=== PATIENT | male | born 1955 | race Caucasian/White ===

== ENCOUNTER 2019-07-19 20:11 | Inpatient (IN) | payer OTHER ==
[~2019-07-19] VITALS: Ht 180.3 cm; Wt 117.9 kg
[~2019-07-19 20:11] MED LIST: ANDROGEL1.25 GM TD; ASPIR 8181 MG PO; HYDROCODON-ACE1 EAC7 PO; HYDROCODONE-AP1 EAC6 PO; KEFLEX500 MG PO; OSELB75 PO; SIMVASTATIN40 MG PO
[2019-07-19 20:15] VITALS: BP 155/82
[2019-07-19] MEDS ORDERED: FISH OIL 1,001000 M2 PO (20:21)
[2019-07-19] MEDS ORDERED: FENOFIBRATE160 MG PO (20:21)
[2019-07-19 20:53] LABS: ABSOLUTE BASOPHILS 0.1 thou/uL (0.0-0.2); ABSOLUTE EOSINOPHILS 0.1 thou/uL (0.0-0.7); ABSOLUTE LYMPHOCYTES 1.7 thou/uL (0.8-5.3); ABSOLUTE MONOCYTES 0.8 thou/uL (0.0-1.2); ABSOLUTE NEUTROPHILS 8.9 thou/uL (1.6-8.1); BASOPHILS 0.5 %; EOSINOPHILS 1.1 %; HEMATOCRIT 43.6 % (42.0-52.0); HEMOGLOBIN 14.6 gm/dL (14.0-18.0); LYMPHOCYTES 14.8 %; MCH 29.9 pg (26.0-34.0); MCHC 33.5 g/dL (28.0-37.0); MCV 89.1 fL (80.0-100.0); MONOCYTES 7.1 %; MPV 7.5 fl. (7.2-11.1); NUCLEATED RBCS 0 /100WBC; PLATELET COUNT* 279 thou/uL (150-400); POLYS 76.5 %; RBC 4.89 mil/uL (4.50-6.00); RDW-CV 14.4 % (10.5-14.5); WBC 11.7 thou/uL (4.0-11.0)
[2019-07-19 20:57] LABS: ANION GAP 7 mmol/L (7-16); BUN 26 mg/dL (7-18); CALCIUM 8.9 mg/dL (8.5-10.1); CHLORIDE 105 mmol/L (98-107); CO2 29 mmol/L (21-32); CREATININE 1.5 mg/dL (0.6-1.3); GLUCOSE 158 mg/dL (70-99); POTASSIUM 3.7 mmol/L (3.5-5.1); SODIUM 141 mmol/L (136-145)
[2019-07-19 21:06] LABS: ALKALINE PHOSPHATASE 66 U/L (46-116); SGOT 26 U/L (15-37); SGPT 50 U/L (30-65); TOTAL BILIRUBIN 0.3 mg/dL (<0.1-1.0); TOTAL PROTEIN 7.3 g/dL (6.4-8.2); TROPONIN-I LEVEL <0.06 ng/mL (<0.06)
[2019-07-19 21:32] LABS: LIPASE 12433 U/L (73-393)
--- NOTE | 2019-07-19 22:02 | NUR ---
PT RETURNED FROM CT.
--- NOTE | 2019-07-19 22:05 | NUR ---
REPORT GIVEN TO DONNY ZEPEDA IN [facility].
[2019-07-19 22:07] VITALS: BP 137/70
--- NOTE | 2019-07-19 22:10 | NUR ---
PT ADMITTED TO FLOOR PER CART ACCOMPANIED BY ER STAFF AND WITH BELONGINGS. ORIENTED TO ROOM AND CALL LITE. HISTORY OBTAINED AND ASSESSMENT PERFORMED, SEE ADMIT NOTES. PT CO GENERALIZED ABD PAIN 2/10- DENIES NEED FOR PAIN MEDS, DENIES NAUSEA. INSTRUCTED ON NPO STATUS AND VERBALIZES UNDERSTANDING. UP AD ZACKARY WITH STEADY GAIT. LFA IVF PLACED ON PUMP FOR INFUSION. AOX4, CALL LITE IN EASY REACH. WILL CONTINUE TO MONITOR AND PROVIDE CARES NEEDED.
[2019-07-19 22:20] VITALS: BP 152/94
[2019-07-20] VITALS: BP 142/85
[2019-07-20 00:38] LABS: URINE BILIRUBIN NEGATIVE (Negative); URINE BLOOD NEGATIVE (Negative); URINE CLARITY CLEAR; URINE COLOR YELLOW; URINE GLUCOSE-RANDOM NEGATIVE (Negative); URINE KETONES NEGATIVE (Negative); URINE LEUKOCYTES-REFLEX NEGATIVE (Negative); URINE NITRITE-REFLEX NEGATIVE (Negative); URINE PROTEIN NEGATIVE (Negative); URINE UROBILINOGEN 0.2 E.U./dl (0.2-1.0)
--- NOTE | 2019-07-20 05:16 | NUR ---
PT SLEPT FAIRLY WELL AFTER ADMIT LAST NIGHT. RECEIVED IV PAIN AND NAUSEA MED X1 OVERNIGHT WITH GOOD RESULT. NPO. UP AD ZACKARY TO BR TO VOID. LFA IVF INFUSING PER PUMP. TROP LABS DRAWN OVERNIGHT NORMAL. UA SENT TO LAB. ABLE TO USE CALL LITE AND MAKE NEEDS KNOWN.
[2019-07-20 08:30] VITALS: BP 138/77
[2019-07-20 09:46] LABS: CHOLESTEROL 186 mg/dL (<200); HDL CHOLESTEROL 41 mg/dL (>40); LDL CHOLESTEROL 119 mg/dL (<100); SERUM ASSESSMENT Clear; TC:HDL 4.5 Ratio (Not establshd); TRIGLYCERIDE 132 mg/dL (<150); VLDL 26 mg/dL (<40)
[2019-07-20 16:00] VITALS: BP 134/66
--- NOTE | 2019-07-20 17:10 | EKG ---
[place] [address] ELECTROCARDIOGRAM REPORT Name: JESSICA TIMMONS Room: [address] ADM IN .R.#: [id number] Admission: 07/19/19 Attend Phys: Flaco Sood MD Discharge: Date of : 57 Report #: [id number] THIS REPORT FOR: //name// [facility] ED Test Date: 2019-07-19 Test Time: 20:19:13 Pat Name: JESSICA TIMMONS Department: Room: [facility] Gender: M Fisher Gill Net: [place] : 1955 Requested By: Elliott Dias Order Number: [id number] MD: Adolfo Rosario Measurements Intervals [place] Rate: 73 P: 55 [place]: 162 QRS: 54 QRSD: 104 T: 9 QT: 386 QTc: 426 Interpretive Statements Sinus rhythm No previous ECG available for comparison Electronically Signed On 07-20-2019 17:10:42 CDT by Adolfo Rosario [email or web address] <ELECTRONICALLY SIGNED> By: Adolfo Rosario MD, [facility] 07/20/19 1710 18 18 Adolfo Rosario MD, FACC /EPI
--- NOTE | 2019-07-20 18:14 | NUR ---
PATIENT ALERT AND ORIENTED X 4. VITAL SIGNS STABLE ON ROOM AIR. UP INDEPENDENTLY IN ROOM. IV PATENT WITH FLUIDS INFUSING. PAIN BEING MANAGED WITH IV MEDICATION. DENIES NAUSEA. HOURLY ROUNDS MAINTAINED THROUGHOUT THE SHIFT. CALL LIGHT WITHIN REACH. NURSING WILL CONTINUE TO MONITOR.
[2019-07-20 22:00] VITALS: BP 116/57
[2019-07-21 04:25] LABS: ABSOLUTE EOSINOPHILS 0.1 thou/uL (0.0-0.7); ABSOLUTE LYMPHOCYTES 2.1 thou/uL (0.8-5.3); ABSOLUTE MONOCYTES 0.6 thou/uL (0.0-1.2); ABSOLUTE NEUTROPHILS 6.9 thou/uL (1.6-8.1); BASOPHILS 0.5 %; EOSINOPHILS 0.8 %; HEMOGLOBIN 13.9 gm/dL (14.0-18.0); LYMPHOCYTES 21.4 %; MCH 29.5 pg (26.0-34.0); MCHC 33.1 g/dL (28.0-37.0); MCV 89.1 fL (80.0-100.0); MONOCYTES 6.6 %; MPV 7.3 fl. (7.2-11.1); NUCLEATED RBCS 0 /100WBC; PLATELET COUNT* 254 thou/uL (150-400); POLYS 70.7 %; RBC 4.71 mil/uL (4.50-6.00); RDW-CV 14.3 % (10.5-14.5); WBC 9.8 thou/uL (4.0-11.0)
[2019-07-21 04:32] LABS: CALCIUM 9.3 mg/dL (8.5-10.1); CREATININE 1.3 mg/dL (0.6-1.3); POTASSIUM 4.1 mmol/L (3.5-5.1)
--- NOTE | 2019-07-21 05:39 | NUR ---
PT SLEPT WELL OVERNIGHT WITHOUT COMPLAINTS. HAS DENIED NEED FOR PAIN OR NAUSEA MEDICINE. LFA IVF INFUSING PER PUMP. UP AD ZACKARY IN ROOM TO BR TO VOID WITHOUT DIFFICULTY. AM LABS DRAWN. ABLE TO USE CALL LITE AND MAKE NEEDS KNOWN.
[2019-07-21 07:51] VITALS: BP 133/75
[2019-07-21 16:00] VITALS: BP 142/83
--- NOTE | 2019-07-21 16:10 | CON ---
[address] [address] CONSULTATION Name: JESSICA TIMMONS GRACE Room: [address] IN M.R.#: [id number] Admission: 07/19/19 Attend Phys: Flaco Sood MD Discharge: Date of : 57 Report #: [id number] THIS REPORT FOR: //name// CC: Flaco Perez MD DICTATED BY: Aminata Reid [facility] DATE OF SERVICE: 07/21/2019 PRIMARY CARE PHYSICIAN: Kristina Perez MD Please note at the time of this dictation, the patient was seen and physically examined by myself. REASON FOR CONSULTATION: Pancreatitis. HISTORY OF PRESENT ILLNESS: This is a 64-year-old male who presented to the Emergency Room with generalized abdominal pain that precedingly continued to get worse. He states that it started on Saturday after eating Burmese food and progressively got worse to the point when he was having some nausea and vomiting at that time, prompting him to come in to be seen. The patient has never experienced any of this type of discomfort before and it is the first time that he has been told that he has ever had pancreatitis. The patient was last seen by us in 2014, he underwent a colonoscopy that showed nonthrombosed internal hemorrhoids and some diverticulosis in the sigmoid colon with a repeat in 5 years. The patient is denying any issues with any acid reflux. He states his bowels typically move on a daily basis, soft and formed with no evidence of any bright red blood or any melena noted. ALLERGIES: No known drug allergies. MEDICATIONS FROM HOME: Include simvastatin, aspirin, fenofibrate, and fish oil. PAST MEDICAL HISTORY: Low testosterone. He has sleep apnea, uses CPAP and high cholesterol. PAST SURGICAL HISTORY: Negative. FAMILY HISTORY: Mother had uterine cancer. SOCIAL HISTORY: . Alcohol is only socially once in a while. No tobacco or illegal drug use. REVIEW OF SYSTEMS: Twelve-point review [place] [address] CONSULTATION Name: JESSICA TIMMONS Room: [address] IN ..#: [id number] Admission: 07/19/19 Attend Phys: Flaco Sood MD Discharge: Date of : 57 Report #: [id number] except what is mentioned in the HPI. PHYSICAL EXAMINATION: VITAL SIGNS: Temperature 37.1, pulse 77, respirations 16, blood pressure 135/75. HEART: Regular rate and rhythm. LUNGS: Clear. ABDOMEN: Soft, positive bowel sounds in all 4 quadrants with no masses or tenderness noted. LABORATORY DATA: Hemoglobin 13.4, white count 9.8, platelets 254. GFR is 56. Lipase on admission was 12,433, currently is down to 673 and LFTs are completely normal. CT showed mild peripancreatic fat stranding and fluid consistent with acute pancreatitis. No discrete pancreatic masses identified. Gallbladder normal. Liver shows hepatic steatosis and colonic diverticulosis noted on the CT. Ultrasound of the abdomen consistent with CT findings of hepatomegaly and hepatic steatosis. No ductal dilatation or gallstones are noted. IMPRESSION: 1. Abdominal pain, resolved. 2. Nausea and vomiting, resolved. 3. Pancreatitis. 4. Fatty liver. 5. Family history, mother, uterine cancer. PLAN: 1. Advance diet as tolerated. 2. We will consider an EUS as an outpatient for cause. 3. Further recommendations to be made after Dr. East sees the patient later today. Thank you for allowing us to participate in this patient's care. Please do not hesitate to call with any questions in regard to this consult. <ELECTRONICALLY SIGNED> By: Ariel East MD 07/21/19 1610 1115 1204Ariel East MD /nt
--- NOTE | 2019-07-21 17:59 | NUR ---
PT A&Ox4. VITALS STABLE. IV PATENT, INFUSING. DENIED PAIN. DENIED N/V. TOLERATING FULL LIQUID DIET. UP AD ZACKARY. CALL LIGHT WITHIN REACH. WILL CONTINUE TO MONITOR.
[2019-07-21 20:15] VITALS: BP 125/64
--- NOTE | 2019-07-22 05:20 | NUR ---
PT SLEPT WELL OVERNIGHT. SNACK AT HS WITHOUT N/V OR INCREASED PAIN. H LFA IVF INFUSING PER PUMP. UP AD ZACKARY IN ROOM TO BR TO VOID WITHOUT DIFFICULTY. NO LABS THIS MORNING. HAS DENIED NEED FOR PAIN OR NAUSEA MED THIS SHIFT. ANTICIPATING ADVANCED DIET AND DISCHARGE HOME LATER TODAY. CALL LITE IN EASY REACH.
[2019-07-22 07:44] VITALS: BP 134/76
[2019-07-22 11:13] VITALS: BP 134/76
--- NOTE | 2019-07-22 12:51 | NUR ---
PT DISCHARGED AND LEFT UNIT AT 1250 WITH AND NURSING STAFF TO HOME. IV OUT. PT STABLE UPON DISCHARGE. TOLERATED REGULAR DIET. PERSONAL BELONGINGS SENT WITH PT. NO PAPER SCRIPTS.
== END 2019-07-22 12:50 | disposition home or self-care (01) | DRG 438 ==
LOC: M.ERS 20:11 → M.ORTHSURG 21:39 → M.TBA-ER 21:39 → M.ORTHSURG 22:15
PROVIDERS: Family Medicine; Internal Medicine; ADMIT Internal Medicine
DX: K85.90 Acute pancreatitis without necrosis or infection, unspecified (principal); N17.0 Acute kidney failure with tubular necrosis; R65.11 Systemic inflammatory response syndrome (SIRS) of non-infectious origin with acute organ dysfunction; E66.9 Obesity, unspecified; E78.5 Hyperlipidemia, unspecified; K42.9 Umbilical hernia without obstruction or gangrene; K76.0 Fatty (change of) liver, not elsewhere classified; E78.00 Pure hypercholesterolemia, unspecified; Z90.49 Acquired absence of other specified parts of digestive tract; Z79.82 Long term (current) use of aspirin; Z88.8 Allergy status to other drugs, medicaments and biological substances; Z80.59 Family history of malignant neoplasm of other urinary tract organ; Z68.36 Body mass index [BMI] 36.0-36.9, adult

== ENCOUNTER 2021-07-27 00:16 | Emergency (ER) | payer MEDICARE, OTHER ==
[~2021-07-27] VITALS: Ht 180.3 cm; Wt 120.2 kg
[~2021-07-27 00:16] MED LIST changes: +FENOFIBRATE160 MG PO; +FISH OIL 1,001000 M2 PO
[2021-07-27 01:38] VITALS: BP 150/80
== END 2021-07-27 01:38 | disposition home or self-care (01) ==
LOC: M.ERS 00:16
DX: R50.9 Fever, unspecified (principal); Z20.822 Contact with and (suspected) exposure to COVID-19; R53.1 Weakness; E78.00 Pure hypercholesterolemia, unspecified; Z90.49 Acquired absence of other specified parts of digestive tract; Z98.890 Other specified postprocedural states; Z79.82 Long term (current) use of aspirin; Z79.899 Other long term (current) drug therapy

== ENCOUNTER 2021-11-15 07:32 | Inpatient (IN) | payer MEDICARE, OTHER ==
[~2021-11-15] VITALS: Ht 180.3 cm; Wt 120.2 kg
--- NOTE | ~2021-11-15 | CON ---
[address] [address] CONSULTATION Name: JORGE TIMMONS Room: [address] ADM IN M.R.#: [id number] Admission: 11/15/21 Attend Phys: Giovanny Su Discharge: Date of : 57 Report #: [id number] THIS REPORT FOR: cc: Sascha Connelly MD, Christopher MD Namin, Farid M. MD ~ cc: Jorge Rodriguez DO, Christopher Fox, MD DATE OF CONSULTATION: 11/16/2021 HISTORY OF PRESENT ILLNESS: This is a 66-year-old male with history of pancreatitis back in 2019, who presented to Emergency Room with abdominal pain, bloating and fever. The patient had a CT of abdomen and pelvis and found to have sigmoid diverticulitis. He reports that his last colonoscopy being about 5-6 years ago. That one was negative, but the colonoscopy prior to that, he believes that he had polyp, which was removed. He reports that he moves his bowel once a day or once every other day. He denies hematochezia, melena or recent change in bowel habits. PAST MEDICAL HISTORY: Significant for history of pancreatitis, dyslipidemia, sleep apnea, diabetes, vertebral fracture, lumbar degenerative joint disease, history of appendectomy, hernia repair and fatty liver. ALLERGIES: No known drug allergy. MEDICATIONS: Please refer to MAR. SOCIAL HISTORY: The patient lives at home. Denies tobacco or alcohol use, but he admits that he may occasionally have alcoholic beverage. FAMILY HISTORY: Negative for GI malignancy. PHYSICAL EXAMINATION: VITAL SIGNS: Reveal blood pressure of 142/91, respirations 16, pulse 80, temperature 97.2. LUNGS: Clear. CARDIOVASCULAR: Regular. ABDOMEN: Soft, mildly tender to palpation in the mid lower abdomen. Bowel sounds are positive. NEUROLOGIC: The patient is alert and oriented x 3. There is no focal neurologic deficit. LABORATORY DATA: Reveals sodium of 135, potassium 4.0, BUN is 18, creatinine 1.4, glucose 154. AST is 21, ALT 45, alk phos is 74. WBC is 12.5 with hemoglobin of 14.7 and platelets of [address] [address] CONSULTATION Name: JORGE TIMMONS Room: [address] IN [facility]#: [id number] Admission: 11/15/21 Attend Phys: Giovanny Su Discharge: Date of : 57 Report #: [id number] IMAGING: CT of abdomen and pelvis was obtained on admission, which showed sigmoid diverticulitis and steatohepatitis. ASSESSMENT AND PLAN: The patient with lower abdominal pain, obstipation and fever, who also found to have leukocytosis and CT suggestive of sigmoid diverticulitis. We will continue antibiotics in the hospital for another day and possibly discharge him home with 7 days of Cipro and Flagyl. I told him that he has to have low residue diet for the next couple of weeks and then advance fiber in his diet subsequent to that. He has had a colonoscopy in the past, which was significant for polyps and now he has diverticulitis. We will consider colonoscopy in 4-6 weeks. The patient is agreeable with plan. In reference to his steatohepatitis, his transaminases are normal. We will ask him to try to lose weight and control his diabetes and dyslipidemia better. By: 1440 1925Sherif Perry MD /nt
[~2021-11-15 07:32] MED LIST changes: -FENOFIBRATE160 MG PO; +FENOFIBRATE54 MG PO
[2021-11-15 07:45] VITALS: BP 148/84
[2021-11-15] MEDS ORDERED: METFORMIN HCL500 M3 PO (07:55)
[2021-11-15] MEDS ORDERED: ROSUVASTATIN CA10 MG PO (07:55)
[2021-11-15 08:45] LABS: ABSOLUTE BASOPHILS 0.1 thou/uL (0.0-0.2); ABSOLUTE EOSINOPHILS 0.1 thou/uL (0.0-0.7); ABSOLUTE LYMPHOCYTES 1.9 thou/uL (0.8-5.3); ABSOLUTE NEUTROPHILS 9.5 thou/uL (1.6-8.1); BASOPHILS 0.5 %; EOSINOPHILS 0.5 %; HEMATOCRIT 43.8 % (42.0-52.0); HEMOGLOBIN 14.7 gm/dL (14.0-18.0); LYMPHOCYTES 14.9 %; MCH 28.8 pg (26.0-34.0); MCHC 33.6 g/dL (28.0-37.0); MCV 85.9 fL (80.0-100.0); MONOCYTES 8.1 %; MPV 7.6 fl. (7.2-11.1); NUCLEATED RBCS 0 /100WBC; PLATELET COUNT* 269 thou/uL (150-400); RDW-CV 14.5 % (10.5-14.5); WBC 12.5 thou/uL (4.0-11.0)
[2021-11-15 09:11] LABS: URINE BILIRUBIN NEGATIVE (Negative); URINE BLOOD TRACE (Negative); URINE CLARITY CLEAR; URINE COLOR YELLOW; URINE GLUCOSE-RANDOM NEGATIVE (Negative); URINE KETONES NEGATIVE (Negative); URINE LEUKOCYTES-REFLEX NEGATIVE (Negative); URINE NITRITE-REFLEX NEGATIVE (Negative); URINE PROTEIN NEGATIVE (Negative)
[2021-11-15 09:19] LABS: CALCIUM 9.3 mg/dL (8.5-10.1); CREATININE 1.4 mg/dL (0.6-1.3)
[2021-11-15 09:24] LABS: ALBUMIN 4.2 g/dL (3.4-5.0); TOTAL BILIRUBIN 0.6 mg/dL (<0.1-1.0); TOTAL PROTEIN 7.8 g/dL (6.4-8.2)
--- NOTE | 2021-11-15 13:56 | EKG ---
[place] [address] ELECTROCARDIOGRAM REPORT Name: JORGE TIMMONS Room: [place] [address] ADM IN [facility]#: [id number] Admission: 11/15/21 Attend Phys: Jorge Rodriguez Discharge: Date of : 57 Date of Service: 11/15/21 0811 Report #: [id number] THIS REPORT FOR: //name// 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
[2021-11-15 15:59] VITALS: BP 129/73
[2021-11-15 19:20] VITALS: BP 130/70
[2021-11-16 08:00] VITALS: BP 142/91
[2021-11-16 16:00] VITALS: BP 134/77
--- NOTE | 2021-11-16 16:05 | NUR ---
CM ASSESSMENT: PT A&O, INDEPENDENT WITH ADL'S, ACTIVE AND DRIVES. PT RESIDES AT HOME WITH SPOUSE. PT USES CPAP AT [facility]. NO OTHER DME. PT HAS 0 HX OF HH OR SNF. NO CM D/C PLANNING NEEDS ANTICIPATED. CM WILL REMAIN AVAILABLE TO ASSIST AND FOLLOW NEEDED.
--- NOTE | 2021-11-16 19:42 | NUR ---
PT UP AMBULATING AROUND ROOM WITH A STEADY GAIT. PT WILL PROBABLY GO HOME TOMORROW IF HE TOLERATES A LOW FAT AND LOW FIBER DIET. PT HAS IV FLUIDS INFUSING WITH OUT DIFFICULTY. GAEL CONTINUE TO MONITOR PLAN OF CARE.
[2021-11-16 20:30] VITALS: BP 141/70
[2021-11-17 03:57] LABS: HEMATOCRIT 38.4 % (42.0-52.0); HEMOGLOBIN 12.9 gm/dL (14.0-18.0); MCHC 33.5 g/dL (28.0-37.0); MCV 86.5 fL (80.0-100.0); MPV 7.1 fl. (7.2-11.1); RBC 4.44 mil/uL (4.50-6.00); RDW-CV 14.1 % (10.5-14.5); WBC 5.5 thou/uL (4.0-11.0)
--- NOTE | 2021-11-17 07:45 | NUR ---
PATIENT HAS SLEPT OFF AND ON DURING THE NIGHT. VSS ON RA. NO C/O PAIN. MEDICATIONS GIVEN ORDERED AND CHARTED. IV LEFT FOREARM-NS @ 100ML/HR. PATIENT INSTRUCTED TO USE CALL LIGHT WHEN NEEDING ASSISTANCE. HOURLY ROUNDS MADE. WILL CONTINUE WITH PLAN OF CARE AND NURSING TO MONITOR.
[2021-11-17 07:54] VITALS: BP 138/80
[2021-11-17 10:00] LABS: CALCIUM 8.8 mg/dL (8.5-10.1); CREATININE 1.4 mg/dL (0.6-1.3); POTASSIUM 4.2 mmol/L (3.5-5.1)
[2021-11-17 10:15] VITALS: BP 138/80
[2021-11-17] MEDS ORDERED: LEVOFLOXACIN500 MG PO (10:54)
[2021-11-17] MEDS ORDERED: METRONIDAZOLE500 M4 PO (10:54)
[2021-11-17 11:09] VITALS: BP 138/80
--- NOTE | 2021-11-17 11:19 | NUR ---
PT DISCHARGED HOME WITH ALL BELONGINGS ACCOMPANIED BY HIS . PT DENIES PAIN ON DISMISSAL. PT HAS A GOOD UNDERSTanding OF DISMISSAL INSTRUCTIONS, PT DISMISSED HOME.
[2021-11-17 11:21] VITALS: BP 138/80
--- NOTE | 2021-11-17 16:28 | NUR ---
CM FOLLOWUP PT MED CLEAR AND DC HOME WITH SPOUSE.
== END 2021-11-17 11:30 | disposition home or self-care (01) | DRG 391 ==
LOC: M.ERS 07:32 → M.TBA-ER 11:46 → M.3W 11:46
PROVIDERS: Emergency Medicine; Internal Medicine Gastroenterology; ADMIT Internal Medicine; ATTEND Internal Medicine
DX: K57.32 Diverticulitis of large intestine without perforation or abscess without bleeding (principal); R65.11 Systemic inflammatory response syndrome (SIRS) of non-infectious origin with acute organ dysfunction; N17.9 Acute kidney failure, unspecified; Z20.822 Contact with and (suspected) exposure to COVID-19; E86.0 Dehydration; G47.33 Obstructive sleep apnea (adult) (pediatric); E11.9 Type 2 diabetes mellitus without complications; E78.5 Hyperlipidemia, unspecified; E66.9 Obesity, unspecified; Z68.37 Body mass index [BMI] 37.0-37.9, adult; K59.00 Constipation, unspecified; E78.00 Pure hypercholesterolemia, unspecified; Z90.49 Acquired absence of other specified parts of digestive tract